=== PATIENT | male | born 1985 | race Caucasian/White ===

== ENCOUNTER 2018-02-27 00:14 | Emergency (ER) | payer OTHER ==
[2018-02-27] MEDS ORDERED: ACETAMINOPHEN 325 MG TABLET PO ONE (00:24)
[2018-02-27] MEDS ORDERED: ACETAMINOPHEN 325 MG TABLET ONE (00:25)
--- NOTE | 2018-02-27 00:51 | RADIOLOGY REPORT (SQ) ---
EXAM DESCRIPTION: HAND LEFT 3 VIEWS CLINICAL HISTORY: 33 years, Male, laceration COMPARISON: None. NUMBER OF VIEWS: 3 Findings: Swelling. Bones, joints, and soft tissues of HAND LEFT 3 VIEWS appear otherwise intact. Clinically known soft tissue injury. No radiopaque foreign body. IMPRESSION: Swelling.
--- NOTE | 2018-02-27 00:52 | RADIOLOGY REPORT (SQ) ---
EXAM DESCRIPTION: FOREARM LEFT CLINICAL HISTORY: 33 years, Male, laceration COMPARISON: None. NUMBER OF VIEWS: 2 Findings: Soft tissue defect. No radiopaque foreign body. Bones, joints, and soft tissues of FOREARM LEFT appear otherwise intact. IMPRESSION: Soft tissue injury.
[2018-02-27] MEDS ORDERED: DIPH/PERTUSS(ACELL)/TETANUS VAC/PF 0.5 ML SYR (>=10YO) IM ONE (02:15)
--- NOTE | 2018-02-27 02:21 | ER Document Report ---
ED General - General Chief Complaint: Laceration Stated Complaint: ARM LACERATION Time Seen by Provider: 02/27/18 02:14 TRAVEL OUTSIDE OF THE [place] IN LAST 30 DAYS: No - HPI Notes: Patient is a 33-year-old male with no significant past medical history who presents to the ED complaining of left forearm, wrist, and hand puncture wound/ laceration status post dog bite prior to arrival. Patient states that 2 of his [place] mastiffs were fighting with another dog of his that he tried to break up. Patient states that all his dog's immunizations are up-to-date. He is unsure of his last tetanus. Patient states that there is a larger laceration to his posterior forearm and smaller punctures to the hand, wrist, and forearm. He is still able to move his wrist and fingers without any difficulties. He has not noticed any weakness. He has no associated numbness or tingling. Denies any drug allergies. Denies any headache, fever, URI, sore throat, chest pain, palpitations, syncope, cough, shortness of breath, wheeze, dyspnea, abdominal pain, nausea/vomiting/diarrhea, urinary retention, dysuria, hematuria , muscle paralysis/weakness, or rash. - Related Data Allergies/Adverse Reactions: No Known Allergies Allergy (Verified 02/27/18 00:17) Past Medical History - Social History Smoking Status: Unknown if Ever Smoked Family History: Reviewed & Not Pertinent Review of Systems - Review of Systems -: Yes All other systems reviewed and negative Physical Exam - Vital signs Vitals: Temp Pulse BP Pulse Ox 98.4 F 111 H 134/93 H 98 02/27/18 00:22 02/27/18 00:22 02/27/18 00:22 02/27/18 00:22 - Notes Notes: PHYSICAL EXAMINATION: GENERAL: Well-appearing, well-nourished and in no acute distress. A&Ox4. LUNGS: Breath sounds clear to auscultation bilaterally and equal. No wheezes rales or rhonchi. HEART: Regular rate and rhythm without murmurs, rubs, gallops. Musculoskeletal: Left wrist/fingers: FROM to passive/active. Strength 5+/5. N/V intact distal. No bony tenderness appreciated. Compartments are soft. No obvious tendon/ligament tears. Extremities: No cyanosis, clubbing, or edema b/l. Peripheral pulses 2+. Capillary refill less than 3 seconds. NEUROLOGICAL: Cranial nerves grossly intact. Normal speech, normal gait. Normal sensory, motor exams PSYCH: Normal mood, normal affect. SKIN: Lt forearm: there is a 5cmx1.5cm laceration to the posterior proximal forearm, and a few small <1cm punctures to the anterior and posterior forearm. Lt wrist/hand: there are several small <1cm punctures to the anterior palm, posterior/anterior thumb, and lateral hand. No obvious foreign bodies appreciated. Bleeding controllable. No evidence of arterial bleed. Course - Re-evaluation Re-evalutation: 02/27/18 03:20 Patient is an afebrile, well-hydrated, 33-year-old male who presents to the ED with multiple dog bite/lacerations to the left forearm, wrist, and hand. Vitals are acceptable. PE is otherwise unremarkable for any neurovascular compromise, obvious tendon/ligament rupture, obvious fracture/dislocation, retained foreign body, septic joint. X-rays were unremarkable for any acute pathology aside from soft tissue injuries. No other labs or imaging warranted at this time based on H&P. His wounds were thoroughly soaked, irrigated, and cleansed utilizing chlorhexidine and saline. 3 Steri-Strips were placed for a loose closure of the larger laceration/puncture. Wound dressing was placed and wound instructions reviewed. I will be sending him home with a prescription for Keflex to take as directed. Conservative measures otherwise for symptoms with close monitoring. Recheck with your PCM in 2-3 days. Consider consult orthopedics if needed. Return to the ED with any worsening/concerning symptoms otherwise as reviewed discharge. Patient is in agreement. - Vital Signs Vital signs: Temp Pulse Resp BP Pulse Ox 98.4 F 111 H 134/93 H 98 02/27/18 00:22 02/27/18 00:22 02/27/18 00:22 02/27/18 00:22 Procedures - Laceration/Wound Repair Left Arm Time completed: 03:00 Wound length (cm): 5.5 Wound's Depth, Shape: Superficial, Linear, Other - puncture/dog bite Laceration pre-procedure: Other - chlorhexadine/saline Wound explored: No foreign body removed Irrigated w/ Saline (mLs): 100 Wound Debrided: none Wound Repaired With: Steri-strips - 3, 'loose closure' Post-procedure wound care: Sterile dressing applied, Sling applied Discharge - Discharge Clinical Impression: Dog bite Qualifiers: Encounter type: initial encounter Qualified Code(s): W54.0XXA - Bitten by dog, initial encounter Condition: Stable Disposition: HOME, SELF-CARE Instructions: Antibiotic Ointment Protection ([facility]), Prophylactic Antibiotic ( [facility]), Soap Cleansing ([facility]), Tetanus Immunization Given ([facility]) Additional Instructions: Keep the skin clean Wash with soap and water Tylenol/ibuprofen if needed Triple antibiotic ointment daily with daily wound dressing changes Take medication as directed Monitor for any worsening symptoms Recheck with your PCM in 3-5 days Consider consult with Orthopedics for ongoing/worsening symptoms Return to the ED with any worsening symptoms and/or development of fever, headache, chest pain, palpitations, syncope, shortness of breath, trouble breathing, abdominal pain, n/v/d, abscess, purulent discharge, red streaks, worsening swelling, or other worsening symptoms that are concerning to you. Prescriptions: Amox Tr/Potassium Clavulanate [Augmentin 875-125 Tablet] 1 tab PO BID 10 Days # 20 tablet Forms: Elevated Blood Pressure Referrals: [facility] [Provider Group] - Follow up as needed [facility] [Provider Group] - 02/28/18
[2018-02-27 03:41] VITALS: BP 140/95
== END 2018-02-27 03:40 | disposition home or self-care (01) ==
LOC: ER 00:14
PROC: 0HQEXZZ Repair Left Lower Arm Skin, External Approach (ICD-10-PCS; principal; 2018-02-27)
DX: S51.812A Laceration without foreign body of left forearm, initial encounter (principal); S61.512A Laceration without foreign body of left wrist, initial encounter; S61.412A Laceration without foreign body of left hand, initial encounter; R20.0 Anesthesia of skin; W54.0XXA Bitten by dog, initial encounter
CPT/HCPCS: 90471; 90715; 99283